=== PATIENT | male | born 1935 | race Caucasian/White ===

== ENCOUNTER 2016-07-30 16:01 | Emergency (ER) | payer MEDICARE, OTHER ==
[~2016-07-30] VITALS: Ht 172.7 cm; Wt 72.6 kg
[2016-07-30] MEDS ORDERED: COZAAR50 MG PO (16:38)
[2016-07-30] MEDS ORDERED: GLUCOPHAGE500 MG PO (16:39)
[2016-07-30] MEDS ORDERED: ZOCOR20 MG PO (16:39)
[2016-07-30] MEDS ORDERED: TRAZODONE HCL50 MG PO (16:40)
== END 2016-07-30 16:35 | disposition short-term general hospital (02) ==
LOC: ER 16:01
DX: B02.9 Zoster without complications (principal)

== ENCOUNTER 2016-11-22 16:13 | Emergency (ER) | payer MEDICARE, OTHER ==
[~2016-11-22] VITALS: Ht 172.7 cm; Wt 72.6 kg
[~2016-11-22 16:13] MED LIST: COZAAR50 MG PO; GLUCOPHAGE500 MG PO; TRAZODONE HCL50 MG PO; ZOCOR20 MG PO
== END 2016-11-22 16:59 | disposition short-term general hospital (02) ==
LOC: ER 16:13
DX: R25.9 Unspecified abnormal involuntary movements (principal); R50.9 Fever, unspecified; E11.9 Type 2 diabetes mellitus without complications; E78.5 Hyperlipidemia, unspecified; I10 Essential (primary) hypertension; F17.210 Nicotine dependence, cigarettes, uncomplicated; Z98.890 Other specified postprocedural states; Z98.41 Cataract extraction status, right eye; Z79.84 Long term (current) use of oral hypoglycemic drugs; Z79.899 Other long term (current) drug therapy